=== PATIENT | male | born 1990 | race Hispanic/Latino ===

== ENCOUNTER 2019-11-02 13:54 | Emergency (ER) | payer OTHER ==
[2019-11-02] MEDS ORDERED: SODIUM CHLORIDE 0.9% 1000ML 1,000 ML IV ONE (14:52)
[2019-11-02 14:54] LABS: BASOPHILS % (AUTO) 0.7 % (0.0-5.0); EOSINOPHILS % (AUTO) 2.7 % (0.0-8.0); HEMATOCRIT 44.9 % (42-54); LYMPHOCYTES % (AUTO) 14.2 % (21.0-51.0); MEAN CORPUSCULAR HEMOGLOBIN 29.9 pg (27.0-33.0); MEAN CORPUSCULAR HGB CONC 33.9 g/dL (32.0-36.0); MEAN CORPUSCULAR VOLUME 88.4 fL (79-99); MONOCYTES % (AUTO) 6.8 % (3.0-13.0); NEUTROPHILS % (AUTO) 74.8 % (40.0-77.0); PLATELET COUNT (AUTO) 323 K/uL (130-400); RED BLOOD CELL COUNT(AUTO) 5.08 MIL/uL (4.50-6.20); RED CELL DISTRIBUTION WIDTH 12.2 % (11.0-15.5); WHITE BLOOD COUNT (AUTO) 14.2 K/uL (4.8-10.8)
[2019-11-02 15:04] LABS: CREATININE 1.1 mg/dL (0.5-1.5); POTASSIUM 4.1 mmol/L (3.5-5.1)
[2019-11-02 16:34] LABS: APPEARANCE,URINE Cloudy (CLEAR); BILIRUBIN,URINE Negative (NEGATIVE); COLOR,URINE Yellow (YELLOW); GLUCOSE, URINE (UA) Negative (NEGATIVE); KETONES,URINE Negative (NEGATIVE); LEUKOCYTE ESTERASE ,URINE Negative (NEGATIVE); NITRATE,URINE Negative (NEGATIVE); OCCULT BLOOD,URINE Negative (NEGATIVE); PROTEIN,URINE POS 1+ mg/dL (NEGATIVE); UROBILINOGEN,URINE 0.2 mg/dL (0.2-1.0)
[2019-11-02 16:42] LABS: AMPHET/METH SCREEN,URINE NEGATIVE (NEGATIVE); BARBITURATE SCREEN, URINE NEGATIVE (NEGATIVE); BENZODIAZEPINES SCREEN,URINE NEGATIVE (NEGATIVE); CANNABINOID SCREEN,URINE POSITIVE (NEGATIVE); COCAINE SCREEN,URINE NEGATIVE (NEGATIVE); OPIATE SCREEN,URINE NEGATIVE (NEGATIVE); PHENCYCLIDINE SCREEN,URINE NEGATIVE (NEGATIVE)
[2019-11-02 16:47] LABS: BACTERIA,URINE Few /HPF (None Seen); RBC,URINE None Seen /HPF (0-1)
[2019-11-02 16:48] LABS: AMORPHOUS SEDIMENT,UR Few /LPF (None Seen); SQUAMOUS EPITHELIAL CELL,UR 0-2 /HPF (0-2)
== END 2019-11-02 17:26 | disposition home or self-care (01) ==
LOC: EDH 13:54
DX: G40.909 Epilepsy, unspecified, not intractable, without status epilepticus (principal); Z72.0 Tobacco use
CPT/HCPCS: 36415; 80048; 80305; 81001; 85025; 99285; J7030

== ENCOUNTER 2020-06-16 19:26 | Emergency (ER) | payer OTHER ==
[2020-06-16] MEDS ORDERED: LEVETIRACETAM 500 MG TABLET PO ONE (19:43)
[2020-06-16] MEDS ORDERED: LORAZEPAM 2 MG/ML 1 ML VIAL ONE (19:43)
== END 2020-06-16 21:38 | disposition home or self-care (01) ==
LOC: EDH 19:26
DX: G40.89 Other seizures (principal); Z72.0 Tobacco use
CPT/HCPCS: 36415; 80177; 96374; 99283; J2060